=== PATIENT | female | born 1940 | race Asian ===

== ENCOUNTER 2018-07-21 17:58 | Emergency (ER) | payer OTHER ==
--- NOTE | 2018-07-21 18:14 | EDPHY ---
H & P Stated Complaint: dizzy, weakness Time Seen by Provider: 07/21/18 18:14 HPI/ROS: CHIEF COMPLAINT: Generalized weakness HISTORY OF PRESENT ILLNESS: The patient presents the ED with a history of generalized weakness that began 1 o'clock this afternoon. She describes symptoms primarily of presyncope. She denies vertigo. The patient did have unremarkable laboratory testing done on a routine physical 6 days ago. The patient denies any fever, cough or congestion. She denies dysuria. She denies any acute numbness or weakness. The patient denies any melena. The patient denies any history of fall or trauma. She denies chest pain, palpitations or shortness of breath. REVIEW OF SYSTEMS: A comprehensive 10 point review of systems is otherwise negative aside from elements mentioned in the history of present illness. Source: Patient - Personal History Current Tetanus/Diphtheria Vaccine: No Current Tetanus Diphtheria and Acellular Pertussis (TDAP): No - Medical/Surgical History Hx Asthma: No Hx Chronic Respiratory Disease: No Hx Diabetes: No Hx Cardiac Disease: No Hx Renal Disease: No Hx Cirrhosis: No Hx Alcoholism: No Hx HIV/AIDS: No Hx Splenectomy or Spleen Trauma: No Other PMH: UTI, hyponatremia, vertigo - Social History Smoking Status: Never smoked - Physical Exam Exam: General Appearance: Alert, no distress Eyes: Pupils equal and round no pallor or injection ENT, Mouth: Slightly dry mucous membranes Respiratory: There are no retractions, lungs are clear to auscultation Cardiovascular: Regular rate and rhythm Gastrointestinal: Abdomen is soft and nontender, no masses, bowel sounds normal Neurological: A&O, normal motor function, normal sensory exam, normal cranial nerves Skin: Warm and dry, no rashes Musculoskeletal: Neck is supple nontender Extremities: symmetrical, full range of motion Psychiatric: Patient is oriented X 3, there is no agitation Constitutional: Initial Vital Signs Temperature (C) 36.6 C 07/21/18 18:04 Heart Rate 79 07/21/18 18:04 Respiratory Rate 16 07/21/18 18:04 Blood Pressure 190/115 H 07/21/18 18:04 O2 Sat (%) 97 07/21/18 18:04 O2 Delivery Mode Room Air Allergies/Adverse Reactions: acetaminophen [From Tylenol] Allergy (Verified 07/21/18 18:03) aspirin Allergy (Verified 09/05/18 18:03) Home Medications: Medication Instructions Recorded Herbals/Supplements -Info Only 1 ea PO DAILY 12/17/14 Medical Decision Making - Diagnostics EKG Interpretation: EKG: Complete interpretation has been separately recorded in the [employer] archive. Summary impression: Sinus rhythm, rate 74, borderline right axis deviation ED Course/Re-evaluation: The patient presents the ED with complaints of generalized weakness for the past day. She is noted to be neurologically intact upon arrival. She was slightly hypertensive. Workup in the emergency department included normal EKG, negative troponin, unremarkable laboratory status and a normal urinalysis. Patient's blood pressure is 170/90 at 7:00 p.m.. Her free T3 level is currently pending and she can follow up with her primary care provider tomorrow to check on that result. The patient was observed to have no focality to her neurologic exam and no significant physical exam findings were found in the ED. She is not having symptoms of vertigo. The patient is ambulatory. I have asked her to follow up with her primary care provider tomorrow for recheck. Differential Diagnosis: Differential diagnosis considered includes critical anemia, hypertensive emergency, dehydration, metabolic abnormality, urinary tract infection, acute coronary syndrome - Data Points Laboratory Results: Laboratory Results 07/21/18 18:35 07/21/18 18:35 07/21/18 07/21/18 07/21/18 18:40 18:35 18:35 WBC 3.73 10^3/uL L 10^3/uL (3.80-9.50) RBC 4.29 10^6/uL 10^6/uL (4.18-5.33) Hgb 11.6 g/dL L g/dL (12.6-16.3) Hct 34.8 % L % (38.0-47.0) MCV 81.1 fL L fL (81.5-99.8) MCH 27.0 pg L pg (27.9-34.1) MCHC 33.3 g/dL g/dL (32.4-36.7) RDW 14.9 % % (11.5-15.2) Plt Count 128 10^3/uL L 10^3/uL (150-400) MPV TNP Neut % (Auto) 78.8 % H % (39.3-74.2) Lymph % (Auto) 13.1 % L % (15.0-45.0) [place] % (Auto) 7.2 % % (4.5-13.0) Eos % (Auto) 0.3 % L % (0.6-7.6) Baso % (Auto) 0.3 % % (0.3-1.7) Nucleat RBC Rel Count 0.0 % % (0.0-0.2) Absolute Neuts (auto) 2.94 10^3/uL 10^3/uL (1.70-6.50) Absolute Lymphs (auto) 0.49 10^3/uL L 10^3/uL (1.00-3.00) Absolute Monos (auto) 0.27 10^3/uL L 10^3/uL (0.30-0.80) Absolute Eos (auto) 0.01 10^3/uL L 10^3/uL (0.03-0.40) Absolute Basos (auto) 0.01 10^3/uL L 10^3/uL (0.02-0.10) Absolute Nucleated RBC 0.00 10^3/uL 10^3/uL (0-0.01) Immature Gran % 0.3 % % (0.0-1.1) Immature Gran # 0.01 10^3/uL 10^3/uL (0.00-0.10) RBC/WBC/PLT Morphology TNP Platelet Estimate TNP Sodium 132 mEq/L L mEq/L (135-145) Potassium 4.2 mEq/L mEq/L (3.3-5.0) Chloride 97 mEq/L mEq/L (97-110) Carbon Dioxide 26 mEq/l mEq/l (22-31) Anion Gap 9 mEq/L mEq/L (8-16) BUN 18 mg/dL mg/dL (7-23) Creatinine 0.6 mg/dL mg/dL (0.6-1.0) Estimated GFR > 60 Glucose 121 mg/dL H mg/dL (70-100) Calcium 8.7 mg/dL mg/dL (8.5-10.4) POC Troponin I 0.00 ng/mL ng/mL (0.00-0.08) Free T3 3.46 pg/mL pg/mL (2.77-5.27) Urine Color Urine Appearance Urine pH Ur Specific [place] Urine Protein Urine Ketones Urine Blood Urine Nitrate Urine Bilirubin Urine Urobilinogen Ur Leukocyte Esterase Urine Glucose 07/21/18 18:30 WBC RBC Hgb Hct MCV MCH MCHC RDW Plt Count MPV Neut % (Auto) Lymph % (Auto) [place] % (Auto) Eos % (Auto) Baso % (Auto) Nucleat RBC Rel Count Absolute Neuts (auto) Absolute Lymphs (auto) Absolute Monos (auto) Absolute Eos (auto) Absolute Basos (auto) Absolute Nucleated RBC Immature Gran % Immature Gran # RBC/WBC/PLT Morphology Platelet Estimate Sodium Potassium Chloride Carbon Dioxide Anion Gap BUN Creatinine Estimated GFR Glucose Calcium POC Troponin I Free T3 Urine Color PALE YELLOW Urine Appearance CLEAR Urine pH 6.0 (5.0-7.5) Ur Specific [place] 1.008 (1.002-1.030) Urine Protein NEGATIVE (NEGATIVE) Urine Ketones NEGATIVE (NEGATIVE) Urine Blood NEGATIVE (NEGATIVE) Urine Nitrate NEGATIVE (NEGATIVE) Urine Bilirubin NEGATIVE (NEGATIVE) Urine Urobilinogen NEGATIVE EU EU (0.2-1.0) Ur Leukocyte Esterase NEGATIVE (NEGATIVE) Urine Glucose NEGATIVE (NEGATIVE) Point of Care Test Results: Chemistry 07/21/18 18:40 POC Troponin I 0.00 ng/mL ng/mL (0.00-0.08) Departure - Departure Disposition: Home, Routine, Self-Care Clinical Impression: Generalized weakness Condition: Good Instructions: Weakness (ED) Additional Instructions: 1. Please contact Dr. Downing tomorrow to review the blood test which she ordered. Her thyroid testing is normal in the emergency department today. 2. There is no evidence of anemia noted in the emergency department today. 3. There is no evidence of urinary tract infection or other infectious source of symptoms noted in the emergency department today. Referrals: Alanna Downing MD [Primary Care Provider] - As per Instructions
--- NOTE | 2018-07-21 18:38 | CPEKG ---
Test Reason : OPEN Blood Pressure : / mmHG Vent. Rate : 074 BPM Atrial Rate : 074 BPM P-R Int : 157 ms QRS Dur : 092 ms QT Int : 387 ms P-R-T Axes : 073 082 050 degrees QTc Int : 430 ms Sinus rhythm Borderline right axis deviation Confirmed by Anson Barillas ([id number]) on 07/21/2018 6:37:59 PM Referred By: Confirmed By:Anson Barillas
[2018-07-21 19:02] LABS: PLATELET COUNT 128 10^3/uL (150-400)
[2018-07-21 19:35] VITALS: BP 170/95
== END 2018-07-21 20:04 | disposition home or self-care (01) ==
DX: R53.1 Weakness (principal); Z87.440 Personal history of urinary (tract) infections
CPT/HCPCS: 84481-90; 84484-PO; 86376-90

== ENCOUNTER 2018-07-26 20:26 | Emergency (ER) | payer OTHER ==
[2018-07-26] MEDS ORDERED: NS 1,000 ML IV ONE ×2 (21:00→21:56)
[2018-07-26 21:50] LABS: PLATELET COUNT 119 10^3/uL (150-400)
[2018-07-26] MEDS ORDERED: ONDANSETRON 4 MG/2 ML VIAL IVP ONE (21:56)
--- NOTE | 2018-07-26 21:58 | EDPHY ---
H & P Stated Complaint: DIZZINESS WEAKNESS AND VOMITING, DEHYDRATION Time Seen by Provider: 07/26/18 21:47 HPI/ROS: Chief Complaint: Vertigo, nausea HPI: 77-year-old woman with a history of intermittent vertigo since she has been in her 20s or 30s. She is presenting with nausea and dizziness consistent with prior episodes. She also states that she usually gets symptoms that she is dehydrated. Symptoms usually improved with IV hydration. She has been seen multiple times for this. She did have a CT scan several months ago which was unremarkable. No new a headache. No vision or hearing changes. No new numbness or weakness. Symptoms are worse when she stands up. Better when she lays down. ROS: 10 systems were reviewed and were negative except those elements noted in the HPI. PMH: Vertigo Social History: No smoking, no alcohol, no recreational drug use Family History: non-contributory Physical Exam: Gen: Awake, Alert, No Distress HEENT: Nose: no rhinorrhea Eyes: PERRLA, EOMI, mild horizontal nystagmus with both left and rightward gaze Mouth: Moist mucosa Neck: Supple, no JVD Chest: nontender, lungs clear to auscultation Heart: S1, S2 normal, no murmur Abd: Soft, non-tender, no guarding Back: no CVA tenderness, no midline tenderness Ext: no edema, non-tender Skin: no rash Neuro: CN II-XII intact, Sensation grossly intact, Strength 5/5 in bilateral upper and lower extremities, normal finger-nose, normal heel-garcia - Personal History Current Tetanus/Diphtheria Vaccine: Unsure Current Tetanus Diphtheria and Acellular Pertussis (TDAP): Unsure - Medical/Surgical History Hx Asthma: No Hx Chronic Respiratory Disease: No Hx Diabetes: No Hx Cardiac Disease: No Hx Renal Disease: No Hx Cirrhosis: No Hx Alcoholism: No Hx HIV/AIDS: No Hx Splenectomy or Spleen Trauma: No Other PMH: UTI, hyponatremia, vertigo - Social History Smoking Status: Never smoked Constitutional: Initial Vital Signs Temperature (C) 36.9 C 07/26/18 20:31 Heart Rate 75 07/26/18 20:31 Respiratory Rate 16 07/26/18 20:31 Blood Pressure 190/104 H 07/26/18 20:31 O2 Sat (%) 99 07/26/18 20:31 O2 Delivery Mode Room Air Allergies/Adverse Reactions: acetaminophen [From Tylenol] Allergy (Verified 07/26/18 20:34) aspirin Allergy (Verified 07/26/18 20:34) Home Medications: Medication Instructions Recorded Herbals/Supplements -Info Only 1 ea PO DAILY 12/17/14 Meclizine HCl [Meclizine HCl 12.5 12.5 mg PO BID PRN #10 tab 07/26/18 mg (*)] Medical Decision Making ED Course/Re-evaluation: 77-year-old woman presenting with vertigo with a history of the same. Laboratory evaluations are unremarkable. She is improved after IV hydration. After she did not want taking meclizine but has taken this is feeling improved. Will discharge with follow-up with primary care physician. No evidence of acute process. This is a long-standing condition without any new features. There are no findings which suggest an acute neurologic process at this time. - Data Points Laboratory Results: Laboratory Results 07/26/18 21:00 07/26/18 21:00 07/26/18 07/26/18 07/26/18 22:15 21:00 21:00 WBC RBC Hgb Hct MCV MCH MCHC RDW Plt Count MPV Neut % (Auto) Lymph % (Auto) [place] % (Auto) Eos % (Auto) Baso % (Auto) Nucleat RBC Rel Count Absolute Neuts (auto) Absolute Lymphs (auto) Absolute Monos (auto) Absolute Eos (auto) Absolute Basos (auto) Absolute Nucleated RBC Immature Gran % Immature Gran # Sodium 131 mEq/L L mEq/L (135-145) Potassium 4.4 mEq/L mEq/L (3.3-5.0) Chloride 97 mEq/L mEq/L (97-110) Carbon Dioxide 26 mEq/l mEq/l (22-31) Anion Gap 8 mEq/L mEq/L (8-16) BUN 19 mg/dL mg/dL (7-23) Creatinine 0.8 mg/dL mg/dL (0.6-1.0) Estimated GFR > 60 Glucose 140 mg/dL H mg/dL (70-100) Calcium 8.9 mg/dL mg/dL (8.5-10.4) Troponin I < 0.012 ng/mL ng/mL (0.000-0.034) Urine Color PALE YELLOW Urine Appearance CLEAR Urine pH 7.0 (5.0-7.5) Ur Specific [place] 1.008 (1.002-1.030) Urine Protein NEGATIVE (NEGATIVE) Urine Ketones NEGATIVE (NEGATIVE) Urine Blood NEGATIVE (NEGATIVE) Urine Nitrate NEGATIVE (NEGATIVE) Urine Bilirubin NEGATIVE (NEGATIVE) Urine Urobilinogen NEGATIVE EU EU (0.2-1.0) Ur Leukocyte Esterase NEGATIVE (NEGATIVE) Urine Glucose NEGATIVE (NEGATIVE) 07/26/18 21:00 WBC 3.71 10^3/uL L 10^3/uL (3.80-9.50) RBC 4.60 10^6/uL 10^6/uL (4.18-5.33) Hgb 12.3 g/dL L g/dL (12.6-16.3) Hct 37.2 % L % (38.0-47.0) MCV 80.9 fL L fL (81.5-99.8) MCH 26.7 pg L pg (27.9-34.1) MCHC 33.1 g/dL g/dL (32.4-36.7) RDW 14.9 % % (11.5-15.2) Plt Count 119 10^3/uL L 10^3/uL (150-400) MPV TNP Neut % (Auto) 69.4 % % (39.3-74.2) Lymph % (Auto) 23.5 % % (15.0-45.0) [place] % (Auto) 6.5 % % (4.5-13.0) Eos % (Auto) 0.3 % L % (0.6-7.6) Baso % (Auto) 0.3 % % (0.3-1.7) Nucleat RBC Rel Count 0.0 % % (0.0-0.2) Absolute Neuts (auto) 2.58 10^3/uL 10^3/uL (1.70-6.50) Absolute Lymphs (auto) 0.87 10^3/uL L 10^3/uL (1.00-3.00) Absolute Monos (auto) 0.24 10^3/uL L 10^3/uL (0.30-0.80) Absolute Eos (auto) 0.01 10^3/uL L 10^3/uL (0.03-0.40) Absolute Basos (auto) 0.01 10^3/uL L 10^3/uL (0.02-0.10) Absolute Nucleated RBC 0.00 10^3/uL 10^3/uL (0-0.01) Immature Gran % 0.0 % % (0.0-1.1) Immature Gran # 0.00 10^3/uL 10^3/uL (0.00-0.10) Sodium Potassium Chloride Carbon Dioxide Anion Gap BUN Creatinine Estimated GFR Glucose Calcium Troponin I Urine Color Urine Appearance Urine pH Ur Specific [place] Urine Protein Urine Ketones Urine Blood Urine Nitrate Urine Bilirubin Urine Urobilinogen Ur Leukocyte Esterase Urine Glucose Medications Given: Discontinued Medications Sodium Chloride (Ns) 1,000 mls @ 0 mls/hr IV ONCE ONE; Wide Open PRN Reason: Protocol Stop: 07/26/18 21:01 Last Admin: 07/26/18 21:00 Dose: 1,000 mls Sodium Chloride (Ns) 1,000 mls @ 0 mls/hr IV ONCE ONE; Wide Open PRN Reason: Protocol Stop: 07/26/18 21:57 Last Admin: 07/26/18 22:14 Dose: 1,000 mls Meclizine HCl (Meclizine Hcl) 12.5 mg PO EDNOW ONE Stop: 07/26/18 23:32 Last Admin: 07/26/18 23:37 Dose: 12.5 mg Ondansetron HCl (Zofran) 4 mg IVP EDNOW ONE Stop: 07/26/18 21:57 Last Admin: 07/26/18 22:14 Dose: 4 mg Departure - Departure Disposition: Home, Routine, Self-Care Clinical Impression: Vertigo Condition: Good Instructions: Vertigo (ED) Additional Instructions: Make sure to drink plenty of fluids. Pedialyte is the best the fluid to drink if you're dehydrated. Follow up with primary care physician in 3-4 days for further evaluation. Return to the emergency department for worsening dizziness, headache, nausea vomiting, chest pain, shortness of breath, fainting, or any other concerns. Referrals: Alanna Downing MD [Primary Care Provider] - As per Instructions Prescriptions: Meclizine HCl [Meclizine HCl 12.5 mg (*)] 12.5 mg PO BID PRN #10 tab PRN Reason: Dizziness
[2018-07-26] MEDS ORDERED: MECLIZINE HCL 25 MG TAB PO ONE (23:31)
[2018-07-27 00:10] VITALS: BP 146/86
--- NOTE | 2018-07-27 02:51 | CPEKG ---
Test Reason : OPEN Blood Pressure : / mmHG Vent. Rate : 079 BPM Atrial Rate : 079 BPM P-R Int : 156 ms QRS Dur : 094 ms QT Int : 402 ms P-R-T Axes : 073 074 041 degrees QTc Int : 461 ms Sinus rhythm Confirmed by Link Rosenberg ([id number]) on 07/27/2018 2:50:48 AM Referred By: Confirmed By:Link Rosenberg
== END 2018-07-27 00:10 | disposition home or self-care (01) ==
DX: R42 Dizziness and giddiness (principal); R11.0 Nausea; E86.9 Volume depletion, unspecified
CPT/HCPCS: 93005; 96361; 96374; 99284; J2405

== ENCOUNTER 2018-08-05 19:10 | Observation (INO) | payer OTHER ==
[2018-08-05] MEDS ORDERED: NS 1,000 ML IV ONE (19:23)
[2018-08-05] MEDS ORDERED: ONDANSETRON 4 MG/2 ML VIAL IVP ONE (19:23)
--- NOTE | 2018-08-05 19:35 | EDPHY ---
H & P Time Seen by Provider: 08/05/18 19:12 HPI/ROS: CHIEF COMPLAINT: Severe vertigo and vomiting HISTORY OF PRESENT ILLNESS: Per the family this is the patient's 5th visit to a health care provider in the last 2 and half weeks for the same symptoms. She was in the emergency department on July 26 and was diagnosed with mild hyponatremia and saw her primary care doctor [facility] yesterday. At that point the plan was to increase her meclizine to 25 mg orally 2 or 3 times a day, ENT and neurology follow-up an MRI. The patient today at 5:00 p.m. Developed severe sudden onset of vertigo with vomiting. It is a spinning sensation and was not better with 2 doses of oral meclizine. She is essentially incapacitated brought in by her family unable to stand or walk, with continuous severe vomiting. Not associated with headache or neck pain or tenderness or abdominal discomfort. REVIEW OF SYSTEMS: Eye: no change in vision ENT: no sore throat , has had ringing in her right ear intermittently over the past 2 weeks. No hearing loss. Cardiac: no chest pain or syncope Pulmonary: no cough or SOB Abdomen: HPI Musculoskeletal: no back pain Skin: no rash Neuro: HPI Constitutional: no fever : no urinary symptoms A comprehensive 10 point review of systems is otherwise negative aside from elements mentioned in the history of present illness. PAST MEDICAL HISTORY: Vertigo and hyponatremia, history of osteopenia. Had pneumonia in 2014 with associated atrial fibrillation, not recurrent. Social history: Here with daughter and son-in-law General Appearance: Alert and cooperative. Eyes: No scleral icterus. Pupils equal and reactive extraocular motion intact with nystagmus greater when looking toward the right side ENT, Mouth: Normal mucous membranes. Respiratory: Normal respiratory effort, breath sounds equal, lungs are clear to auscultation. Cardiovascular: Regular rate and rhythm. Gastrointestinal: Abdomen is soft and non tender. Neurological: Alert, face symmetric, normal motor and sensory in extremities. Normal [id number] bilaterally. Appropriately responds to questions and commands. Skin: Warm and dry, no rashes. Musculoskeletal: No peripheral edema. Psychiatric: Not agitated. Emergency Department course/MDM: Severe vertigo with uncontrollable vomiting despite large doses of meclizine at home. Crescendo symptoms with primary care plan for Neurology ENT consultation with MRI. Zofran 4 mg IV Valium 2 mg IV, admission to hospitalist service for control of symptoms and further workup. 1957: Patient is now more comfortable, not actively vomiting. MRI ordered including angio neck. Co2 low consistent with dehydration. Smoking Status: Never smoked Constitutional: Initial Vital Signs Temperature (C) 36.8 C 08/05/18 19:17 Heart Rate 86 08/05/18 19:17 Respiratory Rate 18 08/05/18 19:17 Blood Pressure 166/94 H 08/05/18 19:17 O2 Sat (%) 100 08/05/18 19:17 O2 Delivery Mode Room Air Allergies/Adverse Reactions: acetaminophen [From Tylenol] Allergy (Verified 08/05/18 19:19) aspirin Allergy (Verified 08/05/18 19:19) Home Medications: Medication Instructions Recorded Meclizine HCl [Meclizine HCl 12.5 25 mg PO BID PRN 08/05/18 mg (*)] Medical Decision Making - Diagnostics EKG Interpretation: EKG 12 lead for vertigo; complete reading in MUSE: sinus rate 87 normal intervals, borderline right axis. Differential Diagnosis: Differential diagnosis considered for dizziness including but not limited to vascular dissection or insufficiency, peripheral and central causes of vertigo, orthostatic causes including dehydration, and blood loss. Consult/Admit Bed Type: [place] 1952 - Data Points Laboratory Results: Laboratory Results 08/05/18 19:31 08/05/18 19:31 08/05/18 08/05/18 19:31 19:31 WBC 5.77 10^3/uL 10^3/uL (3.80-9.50) RBC 4.85 10^6/uL 10^6/uL (4.18-5.33) Hgb 13.0 g/dL g/dL (12.6-16.3) Hct 38.9 % % (38.0-47.0) MCV 80.2 fL L fL (81.5-99.8) MCH 26.8 pg L pg (27.9-34.1) MCHC 33.4 g/dL g/dL (32.4-36.7) RDW 14.7 % % (11.5-15.2) Plt Count 208 10^3/uL 10^3/uL (150-400) MPV TNP Neut % (Auto) 62.6 % % (39.3-74.2) Lymph % (Auto) 30.2 % % (15.0-45.0) [place] % (Auto) 6.4 % % (4.5-13.0) Eos % (Auto) 0.3 % L % (0.6-7.6) Baso % (Auto) 0.2 % L % (0.3-1.7) Nucleat RBC Rel Count 0.0 % % (0.0-0.2) Absolute Neuts (auto) 3.61 10^3/uL 10^3/uL (1.70-6.50) Absolute Lymphs (auto) 1.74 10^3/uL 10^3/uL (1.00-3.00) Absolute Monos (auto) 0.37 10^3/uL 10^3/uL (0.30-0.80) Absolute Eos (auto) 0.02 10^3/uL L 10^3/uL (0.03-0.40) Absolute Basos (auto) 0.01 10^3/uL L 10^3/uL (0.02-0.10) Absolute Nucleated RBC 0.00 10^3/uL 10^3/uL (0-0.01) Immature Gran % 0.3 % % (0.0-1.1) Immature Gran # 0.02 10^3/uL 10^3/uL (0.00-0.10) Sodium 134 mEq/L L mEq/L (135-145) Potassium 4.5 mEq/L mEq/L (3.3-5.0) Chloride 103 mEq/L mEq/L (97-110) Carbon Dioxide 16 mEq/l L mEq/l (22-31) Anion Gap 15 mEq/L mEq/L (8-16) BUN 23 mg/dL mg/dL (7-23) Creatinine 0.8 mg/dL mg/dL (0.6-1.0) Estimated GFR > 60 Glucose 124 mg/dL H mg/dL (70-100) Calcium 9.5 mg/dL mg/dL (8.5-10.4) Medications Given: Discontinued Medications Diazepam (Valium) 2 mg IVP EDNOW ONE Stop: 08/05/18 19:37 Last Admin: 08/05/18 19:44 Dose: 2 mg Sodium Chloride (Ns) 1,000 mls @ 0 mls/hr IV ONCE ONE; Wide Open PRN Reason: Protocol Stop: 08/05/18 19:24 Last Admin: 08/05/18 19:33 Dose: 1,000 mls Ondansetron HCl (Zofran) 4 mg IVP EDNOW ONE Stop: 08/05/18 19:24 Last Admin: 08/05/18 19:33 Dose: 4 mg Departure - Departure Disposition: [facility] Inpatient Acute Clinical Impression: Vertigo Condition: Good
[2018-08-05] MEDS ORDERED: DIAZEPAM 5 MG/ML 1 ML SYR IVP ONE (19:36)
[2018-08-05] MEDS ORDERED: ONDANSETRON 4 MG/2 ML VIAL IVP PRN (19:51)
[2018-08-05] MEDS ORDERED: ONDANSETRON DISINTEGRATING 4 MG TAB PO PRN (19:51)
[2018-08-05] MEDS ORDERED: MECLIZINE HCL 25 MG TAB PO PRN (19:51)
--- NOTE | 2018-08-05 20:08 | CPEKG ---
Test Reason : OPEN Blood Pressure : / mmHG Vent. Rate : 087 BPM Atrial Rate : 087 BPM P-R Int : 161 ms QRS Dur : 102 ms QT Int : 395 ms P-R-T Axes : 073 083 053 degrees QTc Int : 476 ms Sinus rhythm Borderline right axis deviation Confirmed by Savage Omalley ([id number]) on 08/05/2018 8:07:35 PM Referred By: Confirmed By:Savage Omalley
--- NOTE | 2018-08-05 20:13 | PDGENHP ---
History and Physical - Chief Complaint vertigo, vomiting - History of Present Illness 77 yo female with long h/o intermittent vertigo symptoms dating back 20+ years presents to ED with increased vertigo and vomiting. Her symptoms have been worsening over the past 2-3 weeks and she has had multiple visits to the ED and her PCP. There was a plan for outpatient referral to ENT and neurology, along with MRI. She has taken Meclizine intermittently and the dose was recently increased to twice daily. Her symptoms became severe today, associated with vomiting and inability to ambulate or stand. She describes the symptoms as a spinning sensation. She denies associated focal weakness, speech difficulty or vision changes. No CP or SOB. In the past, her symptoms improved with hydration. Today, she took 2 doses of meclizine without improvement. In the ED, she received IV Zofran and IV Valium, along with 1 L NS. Her symptoms are improved. MRI is ordered and she is admitted to the hospital for further management. History Information - Allergies/Home Medication List Allergies/Adverse Reactions: acetaminophen [From Tylenol] Allergy (Verified 08/05/18 19:19) aspirin Allergy (Verified 08/05/18 19:19) Home Medications: Meclizine HCl [Meclizine HCl 12.5 mg (*)] 25 mg PO BID PRN 08/05/18 [Last Taken Unknown] I have personally reviewed and updated: family history, medical history, social history, surgical history - Past Medical History Additional medical history: long h/o intermittent vertigo - Surgical History Reports: no pertinent surgical hx - Family History Positive for: non-pertinent - Social History Smoking Status: Never smoked Alcohol Use: None Drug Use: None Additional social history: Lives independently Review of Systems Review of Systems: ROS: 10pt was reviewed & negative except for what was stated in HPI & below Physical Exam Physical Exam: Temp Pulse Resp BP Pulse Ox 36.8 C 86 18 166/94 H 100 08/05/18 19:17 08/05/18 19:17 08/05/18 19:17 08/05/18 19:17 08/05/18 19:17 Lab Data & Imaging Review 08/05/18 19:31 08/05/18 19:31 Visualized and Interpreted EKG results: Yes EKG Interpretation: Positive for: normal sinsus rhythm Assessment & Plan Assessment: Vertigo (Acute) - with associated vomiting, improved after NS, Valium and Zofran in ED. -MRI/MRA now to r/o posterior circulation stroke -prn meclizine, zofran, valium as last resort -PT/OT evals tomorrow Hyponatremia - very mild -follow Full code Dispo - obs
[2018-08-05 20:40] LABS: PLATELET COUNT 208 10^3/uL (150-400)
[2018-08-05] MEDS ORDERED: NS 1,000 ML IV SCH (22:45)
[2018-08-06] MEDS ORDERED: DIAZEPAM 5 MG/ML 1 ML SYR IVP PRN (01:00)
[2018-08-06 11:22] VITALS: BP 132/77
--- NOTE | 2018-08-06 15:22 | ASMTLACE ---
LACE Length of stay for Answers: 2 days current admission Acuity / Level of Answers: No Care: Did the patient have an inpatient admission? Comorbidities - select Answers: Other Notes: Vertigo; Hyponatremia all that apply # of Emergency department Answers: 3-4 visits in the last 6 months Score: 6 Date Signed: 08/06/2018 03:15 PM Electronically Signed By:VASQUEZ Rodríguez
--- NOTE | 2018-08-06 15:24 | ASMTCMCOM ---
CM Note CM Note Notes: Pt in for vertigo, has had persistent symptoms last few weeks. PT rec home. Pt has family support. Pt medically stable for d/c. No CM d/c needs identified. Date Signed: 08/06/2018 03:16 PM Electronically Signed By:VASQUEZ Rodríguez
--- NOTE | 2018-08-06 17:55 | PDDCSUM ---
Discharge Summary Discharge Summary: DISCHARGE SUMMARY FOLLOW-UP ITEMS: Outpatient ENT follow-up appointment and arrange possible outpatient physical therapy [facility] DATE OF ADMISSION: 08/05/2018 DATE OF DISCHARGE: 08/06/2018 DISCHARGE DIAGNOSES: 1. Suspected Meniere's disease 2. Incidentally identified left-sided meningioma CONSULTATIONS: None PROCEDURES / IMAGING: MRI of brain demonstrating a small meningioma on the left with normal appearing MRA CHIEF COMPLAINT: Acute vertigo SUBJECTIVE: Patient is feeling well at time of discharge, her vertigo has dissipated PHYSICAL EXAM ON DISCHARGE: Systolic blood pressure is 120-150, heart rate 70-80, if overnight, satting room air, alert awake oriented x3, no apparent distress LABS ON DISCHARGE: Potassium 5, creatinine 0.7 HOSPITAL COURSE BY PROBLEM: Patient presented with acute worsening of chronic vertigo, with pervasive symptoms including nausea vomiting and vertiginous sensation which was not alleviated with home dosages of meclizine. The patient had acute CVA ruled out with MRI and MRA, and the incidentally identified meningioma is not likely to be resulting in her aforementioned symptoms. It is small and not in area which would cause vertiginous symptoms. She received empiric Zofran, Valium, meclizine, and her symptoms abated. I believe that the most likely cause of her symptoms is Meniere's disease or acute labyrinthitis, with ongoing tinnitus in her right ear and a long history of vertiginous symptoms with this acute exacerbation. Recommended supportive care with Zofran first-line, meclizine second-line, Valium 3rd line, and outpatient follow-up with Dr. Divina Ramachandran, with whom she has scheduled next week. Following that appointment, she may be interested in physical therapy and outpatient [facility]. She also has an outpatient neurology appointment scheduled as well. DISCHARGE MEDICATIONS: Please see official discharge medication reconciliation sheet in chart , as needed Zofran, as needed meclizine, as needed Valium. DISCHARGE INSTRUCTIONS: Please follow up with ENT and Neurology as scheduled.
== END 2018-08-06 12:24 | disposition home or self-care (01) ==
LOC: F3N 21:20
PROVIDERS: ADMIT Hospitalist; ATTEND Internal Medicine
DX: R42 Dizziness and giddiness (principal); H93.11 Tinnitus, right ear; R11.10 Vomiting, unspecified; E86.9 Volume depletion, unspecified; D32.9 Benign neoplasm of meninges, unspecified; E87.1 Hypo-osmolality and hyponatremia
CPT/HCPCS: 70544; 70547; 70551; 93005; 96374; 96375; 97161; 99285; G0378; G8978; G8979; G8980; J2405; J3360

== ENCOUNTER 2018-08-26 13:47 | Emergency (ER) | payer OTHER ==
[2018-08-26 14:09] VITALS: BP 117/84
[2018-08-26] MEDS ORDERED: NS 500 ML IV ONE (14:14)
--- NOTE | 2018-08-26 14:47 | EDPHY ---
H & P Time Seen by Provider: 08/26/18 14:14 HPI/ROS: HPI Fainted. 77-year-old female by private vehicle with her mother. This patient has a history of vertigo which is thought to be attributed to malnutrition and dehydration. She has had extensive workup and testing in our emergency department and hospital secondary to this. Her daughter reports that the patient was standing for about 10 min and talking to her sister when she suddenly "went blank", fell backwards and struck the back of her head. The patient reports that she felt lightheaded. She reports that she does not think she fully lost consciousness. She is not on anticoagulation or antiplatelet agents. She denies neck pain. No loss of sensation or weakness in her extremities. No associated headache, chest pain, palpitations. ROS: Constitutional: No fever, no chills. As above. Eyes: No discharge. No changes in vision. ENT: No sore throat. No nasal congestion or rhinorrhea. Respiratory: No cough. No shortness of breath. Cardiac: No chest pain, no palpitations. Gastrointestinal: No abdominal pain, no vomiting, no diarrhea. Genitourinary: No hematuria. No dysuria or increased frequency with urination. Musculoskeletal: No back pain. No neck pain. No myalgias or arthralgias. Skin: No rashes. Neurological: No headache. No focal weakness or altered sensation. Past medical history: Urinary tract infection, hyponatremia, vertigo. Social history: Nonsmoker. Here with her daughter. No alcohol. Physical Exam: General Appearance: Alert, no distress. This patient is responding to questions appropriately and in full sentences. This patient appears well- hydrated and well-nourished. Head: Normocephalic atraumatic except for a subtle midline upper occipital posterior parietal scalp contusion. No associated scalp laceration. No bony step-off or deformity noted on palpation of this area. Face: Facial bones are stable on palpation. Eyes: Pupils equal and round and reactive to light, no pallor or injection. No lid erythema or edema. ENT, Mouth: Mucous membranes moist. Dentition is intact. No malocclusion of the jaw. No tongue lacerations or abrasions. Pharynx is clear. The bilateral nasal canals are clear. No septal hematoma. Respiratory: There are no retractions, lungs are clear to auscultation with good air movement bilaterally. Chest wall is stable to AP and lateral palpation. Cardiovascular: Regular rate and rhythm. No murmur. Gastrointestinal: Abdomen is soft and nontender, no masses, bowel sounds normal. Neurological: Motor sensory function is intact. Cranial nerves are normal. Cerebellar function intact. Skin: Warm and dry, no rashes. No lacerations, abrasions. She has a subtle contusion to the posterior olecranon of her left elbow. There is no pain on axial compression of the joint. No significant pain, deformity noted on palpation of the elbow. Musculoskeletal: Neck is supple and nontender. The trachea is midline. No midline cervical, thoracic, lumbar or sacral tenderness on palpation. No flank tenderness on palpation. Extremities are symmetrical, full range of motion. All joints in the bilateral upper and bilateral lower extremities range without pain or impingement. No tenderness on palpation of the long bones in the bilateral upper and bilateral lower extremities. Psychiatric: No agitation. No depression. Database: EKG: EKG time is 2:43 p.m.; EKG shows a narrow complex normal sinus rhythm with a ventricular rate of 97. The MT, QRS, QT intervals are within normal limits. There are no ST-T wave changes indicative of ischemic or injury pattern. No evidence of right heart strain. No evidence of WPW, Brugada syndrome, hypertrophic cardiomyopathy. Interpreted by me. Imaging: CT head without contrast: Negative. Results were discussed with staff radiologist Dr. Justus Mackey. Procedures: Emergency department course: Triage vital signs reviewed. She was moderately tachycardic in triage. Vital signs otherwise normal. She is afebrile. I have reviewed the patient's medical records. She has had an extensive workup for vertigo and central etiology of vertigo as well as syncope on August 05 and . Her electrolytes were unremarkable. She is not anemic. She has had an MRI of the brain without contrast, and an MRA of the head and neck, all of which showed no significant pathology. 3:00 p.m., the patient was re-evaluated. Repeat neurologic Assessment is nonfocal. Results of her CT of her head and her EKG discussed with her and her mother. The patient and mother do not want an IV placed at this time. She currently has no complaints. They did agree to have a blood sugar checked. Otherwise the patient does feel comfortable going home. 3:15 p.m., point of care blood sugar is 122. The patient and daughter now requesting discharge. Given her extensive workup recently in late October at the fact that patient is asymptomatic now with an unremarkable EKG I feel this is reasonable. They will follow up with her primary care physician tomorrow for re-evaluation. Return to emergency department precautions of thoroughly been reviewed with the 2 of them. All of their questions were answered. The patient was discharged home in good condition with her daughter. Differential Diagnosis: The differential diagnosis on this patient includes but is not limited to vasovagal syncope, noncardiac syncope. This represents a partial list of diagnoses considered. These considerations are based on history, physical exam , past history, reassessment and diagnostic testing. Smoking Status: Never smoked Constitutional: Initial Vital Signs Temperature (C) 37.1 C 08/26/18 14:06 Heart Rate 102 H 08/26/18 14:06 Respiratory Rate 18 08/26/18 14:06 Blood Pressure 117/84 H 08/26/18 14:06 O2 Sat (%) 93 08/26/18 14:06 O2 Delivery Mode Room Air Allergies/Adverse Reactions: acetaminophen [From Tylenol] Allergy (Verified 08/26/18 14:06) aspirin Allergy (Verified 08/26/18 14:06) Home Medications: Medication Instructions Recorded Meclizine HCl [Meclizine HCl 12.5 25 mg PO BID PRN 08/05/18 mg (*)] Diazepam [Valium 5 MG (*)] 5 mg PO Q6 PRN #20 tab 08/06/18 Ondansetron Odt [Zofran Odt 4 mg 4 - 8 mg PO Q4HRS PRN #40 tab 08/06/18 (*)] Medical Decision Making - Diagnostics Imaging Results: Imaging Impressions Head CT 08/26/18 14:14 Impression: Negative. No acute intracranial hemorrhage or fracture. Findings discussed with Emergency Department physician, Dr. Luh Burger on August 26, 2018 at 1449 hours. - Data Points Laboratory Results: 08/26/18 15:01 POC Glucose 122 mg/dL H mg/dL (70-100) Medications Given: Discontinued Medications Sodium Chloride (Ns) 500 mls @ 0 mls/hr IV ONCE ONE; Wide Open PRN Reason: Protocol Stop: 08/26/18 14:15 Last Admin: 08/26/18 15:12 Dose: Not Given Point of Care Test Results: Chemistry 08/26/18 15:01 POC Glucose 122 mg/dL H mg/dL (70-100) Departure - Departure Disposition: Home, Routine, Self-Care Clinical Impression: Near syncope Condition: Good Instructions: Near Syncope (ED) Additional Instructions: Read and follow provided instructions. Follow-up with your primary care physician in 1-2 days for re-evaluation. Keep yourself well hydrated. He regular meals. Return to the emergency department for return of symptoms, chest pain, fainting , shortness of breath, palpitations or other serious concerns. Referrals: Alanna Downing MD [Primary Care Provider] - As per Instructions
--- NOTE | 2018-08-26 16:51 | CPEKG ---
Test Reason : OPEN Blood Pressure : / mmHG Vent. Rate : 097 BPM Atrial Rate : 097 BPM P-R Int : 138 ms QRS Dur : 093 ms QT Int : 353 ms P-R-T Axes : 048 088 052 degrees QTc Int : 449 ms Sinus rhythm Borderline right axis deviation Confirmed by Luh Burger ([id number]) on 08/26/2018 4:50:29 PM Referred By: Confirmed By:Luh Burger
== END 2018-08-26 15:27 | disposition home or self-care (01) ==
DX: R55 Syncope and collapse (principal); E86.9 Volume depletion, unspecified